=== PATIENT | female | born 1990 | race Caucasian/White ===

== ENCOUNTER 2019-02-22 02:02 | Inpatient (IN) | payer OTHER ==
[2019-02-22] MEDS ORDERED: Misoprostol 200 MCG Tab PO PRN (02:21)
[2019-02-22] MEDS ORDERED: Sodium Chloride 0.9% 2.5 ML Syringe FLUSH PRN (02:21)
[2019-02-22] MEDS ORDERED: Lidocaine 1% 50 ML MDV INJECT PRN (02:21)
[2019-02-22] MEDS ORDERED: Sodium Chloride 0.9% 10 ML Syringe FLUSH PRN (02:21)
[2019-02-22] MEDS ORDERED: Nalbuphine 10 MG/1 ML Vial IVPUSH PRN (02:21)
[2019-02-22] MEDS ORDERED: Tranexamic Acid 1,000 MG in Sodium Chloride 0.9% 100 ML IV PRN (02:21)
[2019-02-22] MEDS ORDERED: Sodium Chloride 0.9% 10 ML SDV IV PRN (02:21)
[2019-02-22] MEDS ORDERED: Water For Irrigation,Sterile 1,000 ML Container IRR PRN (02:21)
[2019-02-22] MEDS ORDERED: Ampicillin 2 GM in Sodium Chloride 0.9% 100 ML IV ONE (02:21)
[2019-02-22] MEDS ORDERED: Butorphanol 1 MG/ML SDV IVPUSH PRN (02:21)
[2019-02-22] MEDS ORDERED: Methylergonovine 0.2 MG/1 ML Amp IM PRN (02:21)
[2019-02-22] MEDS ORDERED: Carboprost Tromethamine 250 MCG/1 ML Amp IM PRN (02:21)
[2019-02-22] MEDS ORDERED: Lactated Ringers 1,000 ML IV SCH (02:30)
[2019-02-22] MEDS ORDERED: Oxytocin/0.9 % Sodium Chloride 30 UNIT/500 ML BAG IV SCH (02:30)
[2019-02-22] MEDS ORDERED: Ampicillin 2 GM AdvVial IV ONE (02:33)
--- NOTE | 2019-02-22 03:02 | PCM.LDHP ---
L&D History of Present Illness - General Date of Service: 02/22/19 Admit Problem/Dx: Patient Status Order with Admit Dx/Problem 02/22/19 02:21 Patient Status [ADT] Routine Admission Diagnosis/Problem Admission Diagnosis/Problem Source of Information: Patient History Limitations: Reports: No Limitations - History of Present Illness Improves with: Reports: None Worsens with: Reports: None Associated Symptoms: Reports: N - Related Data Allergies/Adverse Reactions: Allergies Allergy/AdvReac Type Severity Reaction Status Date / Time strawberry Allergy Hives Verified 02/22/19 02:21 H&P Review of Systems - Review of Systems: Review Of Systems: See Below General: Reports: No Symptoms HEENT: Reports: No Symptoms Pulmonary: Reports: No Symptoms Cardiovascular: Reports: No Symptoms Gastrointestinal: Reports: No Symptoms Genitourinary: Reports: No Symptoms Musculoskeletal: Reports: No Symptoms Skin: Reports: No Symptoms Psychiatric: Reports: No Symptoms Neurological: Reports: No Symptoms Hematologic/Lymphatic: Reports: No Symptoms Immunologic: Reports: No Symptoms L&D Exam - Exam Exam: See Below - Vital Signs Weight: 99.79 kg - OB Specific Fundal Height In cm: 37 Contraction Intensity: Moderate to Strong Movement: Active Heart Tones: Present Presentation: Vertex - Taveras Score Taveras Score Cervix Position: Anterior Taveras Score Consistency: Soft Taveras Score Effacement: >80% Taveras Score Dilation: > 5 cm Taveras Score 's Station: +1, +2 Taveras Score Total: 13 - Exam General: Alert, Oriented HEENT: PERRLA, Conjunctiva Clear, EACs Clear, EOMI, Hearing Intact, Mucosa Moist & Crooks, Nares Patent, Normal Nasal Septum, Posterior Pharynx Clear, TMs Clear Neck: Supple, Trachea Midline Lungs: Clear to Auscultation, Normal Respiratory Effort Cardiovascular: Regular Rate, Regular Rhythm GI/Abdominal Exam: Normal Bowel Sounds, Soft, Non-Tender, No Organomegaly, No Distention, No Abnormal Bruit, No Mass, Pelvis Stable Rectal Exam: Normal Exam, Normal Rectal Tone Genitourinary: Normal external exam, Normal bimanual exam, Normal speculum exam Back Exam: Normal Inspection, Full Range of Motion Extremities: Normal Inspection, Normal Range of Motion, Non-Tender, No Pedal Edema, Normal Capillary Refill Skin: Warm, Dry, Intact Neurological: Cranial Nerves Intact, Reflexes Equal Bilateral Psychiatric: Alert, Normal Affect, Normal Mood Problem List Initiated/Reviewed/Updated: Yes Orders Last 24hrs: Active Orders 24 hr Category Date Time Status Patient Status [ADT] Routine ADT 02/22/19 02:21 Active Heart Tones [RC] CONTINUOUS Care 02/22/19 02:21 Active Non Stress Test [RC] PER UNIT ROUTINE Care 02/22/19 02:21 Active May Shower [RC] ASDIRECTED Care 02/22/19 02:21 Active Notify Provider [RC] PRN Care 02/22/19 02:21 Active Up ad Lilian [RC] ASDIRECTED Care 02/22/19 02:21 Active Vaginal Exam [RC] PRN Care 02/22/19 02:21 Active Vital Signs [RC] PER UNIT ROUTINE Care 02/22/19 02:21 Active CBC W/O DIFF,HEMOGRAM [HEME] Routine Lab 02/22/19 02:21 Ordered TYPE AND SCREEN [BBK] Routine Lab 02/22/19 02:21 Ordered Butorphanol [Stadol] Med 02/22/19 02:21 Active 1 mg IVPUSH Q1H PRN Carboprost Tromethamine [Hemabate DS] Med 02/22/19 02:21 Active 250 mcg IM ASDIRECTED PRN Lactated Ringers [Ringers, Lactated] 1,000 ml Med 02/22/19 02:30 Active IV ASDIRECTED Lidocaine 1% [Xylocaine 1%] Med 02/22/19 02:21 Active 50 ml INJECT ONETIME PRN Methylergonovine [Methergine] Med 02/22/19 02:21 Active 0.2 mg IM ASDIRECTED PRN Nalbuphine [Nubain] Med 02/22/19 02:21 Active 10 mg IVPUSH Q1H PRN Oxytocin/0.9 % Sodium Chloride [Oxytocin 30 Unit/500 ML Med 02/22/19 02:30 Active -NS] 30 unit in 500 ml IV TITRATE Sodium Chloride 0.9% [Normal Saline] Med 02/22/19 02:21 Active 10 ml IV ASDIRECTED PRN Sodium Chloride 0.9% [Saline Flush] Med 02/22/19 02:21 Active 10 ml FLUSH ASDIRECTED PRN Sodium Chloride 0.9% [Saline Flush] Med 02/22/19 02:21 Active 2.5 ml FLUSH ASDIRECTED PRN Tranexamic Acid [Cyklokapron] 1,000 mg Med 02/22/19 02:21 Active Sodium Chloride 0.9% [Normal Saline] 100 ml IV ONETIME Water For Irrigation,Sterile [Sterile Water for Med 02/22/19 02:21 Active Irrigation] 1,000 ml IRR ASDIRECTED PRN miSOPROStol [Cytotec] Med 02/22/19 02:21 Active 200 mcg PO ONETIME PRN Scalp Electrode [WOMSER] Per Unit Routine Oth 02/22/19 02:21 Ordered Peripheral IV Insertion Adult [OM.PC] Routine Oth 02/22/19 02:21 Ordered Resuscitation Status Routine Resus Stat 02/22/19 02:21 Ordered Medication Orders Butorphanol Tartrate (Stadol) 1 mg IVPUSH Q1H PRN PRN Reason: Pain Carboprost Tromethamine (Hemabate Ds) 250 mcg IM ASDIRECTED PRN PRN Reason: Post Hemorrhage Lactated Ringer's (Ringers, Lactated) 1,000 mls @ 150 mls/hr IV ASDIRECTED [facility] Oxytocin/Sodium Chloride (Oxytocin 30 Unit/500 Ml-Ns) 30 unit in 500 mls @ 500 mls/hr IV TITRATE [facility] Tranexamic Acid 1,000 mg/ (Sodium Chloride) 110 mls @ 660 mls/hr IV ONETIME PRN PRN Reason: Bleeding Lidocaine HCl (Xylocaine 1%) 50 ml INJECT ONETIME PRN PRN Reason: Laceration repair Methylergonovine Maleate (Methergine) 0.2 mg IM ASDIRECTED PRN PRN Reason: Post Hemorrhage Misoprostol (Cytotec) 200 mcg PO ONETIME PRN PRN Reason: Post Hemorrhage Nalbuphine HCl (Nubain) 10 mg IVPUSH Q1H PRN PRN Reason: Pain (severe 7-10) Sodium Chloride (Saline Flush) 10 ml FLUSH ASDIRECTED PRN PRN Reason: Keep Vein Open Sodium Chloride (Saline Flush) 2.5 ml FLUSH ASDIRECTED PRN PRN Reason: Keep Vein Open Sodium Chloride (Normal Saline) 10 ml IV ASDIRECTED PRN PRN Reason: IV Use Sterile Water (Sterile Water For Irrigation) 1,000 ml IRR ASDIRECTED PRN PRN Reason: delivery
[2019-02-22] MEDS ORDERED: Bisacodyl 10 MG Supp RECTAL PRN (03:03)
[2019-02-22] MEDS ORDERED: Lanolin 100% Cream 7 GM Tube TOP PRN (03:03)
[2019-02-22] MEDS ORDERED: Benzocaine/Menthol 20%-0.5% Spray 78 GM Cannister TOP PRN (03:03)
[2019-02-22] MEDS ORDERED: Ibuprofen 400 MG Tab PO PRN (03:03)
[2019-02-22] MEDS ORDERED: Acetaminophen 500 MG Tab PO PRN ×2 (03:03)
[2019-02-22] MEDS ORDERED: Witch Hazel Medicated Pads 40/Jar TOP PRN (03:03)
[2019-02-22] MEDS ORDERED: Ibuprofen 800 MG Tab PO PRN (03:03)
[2019-02-22] MEDS ORDERED: oxyCODONE 5 MG Tab PO PRN (03:03)
--- NOTE | 2019-02-22 05:23 | OR ---
SURGEON: Dante Leo MD DATE OF PROCEDURE: Ms. Pauline Johnson is a 28-year-old patient, primigravida. She is followed in our clinic primarily by me. The patient had no complication. Her diabetes screen was essentially normal; however, the patient did have positive GBS status. She is 40+ weeks. She is admitted to Labor and Delivery early this morning in an active labor. At the time of the admission, she was complete complete vertex, 0 to +1 station with spontaneous rupture of the membrane, and the heart rate was essentially normal. The patient was commenced to push and she was able to accomplish normal spontaneous vaginal delivery of a male fetus, who cried immediately. score reported to be 8 and 9. The weight is not available. The patient had not received antibiotic prenatally because she arrived to the hospital complete complete with rupture of spontaneous membrane and proceeded to rather fast delivery. We will notify the pediatric staff of this condition, so they can observe the fetus if it needs antibiotic. There was very small first-degree laceration. There is no labial laceration. The patient has declined suturing of this small laceration, and I agreed with her that it would heal by itself. Estimated blood loss is 250 to 300 mL. heart rate was category 1, and there was no complication in the short labor process and delivery. ELIZABETH / ALEKSANDR /[id number]
[2019-02-23] MEDS: Docusate Sodium 100 MG Cap PO PRN (07:51)
--- NOTE | 2019-02-23 09:55 | PCM.PNPP ---
- General Info Date of Service: 02/23/19 Functional Status: Reports: Pain Controlled - Review of Systems General: Reports: No Symptoms HEENT: Reports: No Symptoms Pulmonary: Reports: No Symptoms Cardiovascular: Reports: No Symptoms Gastrointestinal: Reports: No Symptoms Genitourinary: Reports: No Symptoms Musculoskeletal: Reports: No Symptoms Skin: Reports: No Symptoms Neurological: Reports: No Symptoms Psychiatric: Reports: No Symptoms - General Info Date of Service: 02/23/19 - Patient Data Vital Signs - Most Recent: Last Vital Signs Temp 36.3 C 02/23/19 07:00 Pulse 81 02/23/19 07:00 Resp 16 02/23/19 07:00 BP 120/89 02/23/19 07:00 Pulse Ox 94 L 02/23/19 07:00 Weight - Most Recent: 99.79 kg Lab Results - Last 24 Hours: Laboratory Results - last 24 hr 02/23/19 Range/Units 06:14 Hgb 13.1 (12.0-16.0) g/dL Hct 39.7 (36.0-46.0) % Med Orders - Current: Current Medications Acetaminophen (Tylenol Extra Strength) 500 mg PO Q4H PRN PRN Reason: Pain Acetaminophen (Tylenol Extra Strength) 1,000 mg PO Q4H PRN PRN Reason: Pain Benzocaine/Menthol (Dermoplast Pain Relief 20%-0.5% [place]) 78 gm TOP ASDIRECTED PRN PRN Reason: Perineal Comfort Measure Bisacodyl (Dulcolax) 10 mg RECTAL ONETIME PRN PRN Reason: Constipation Butorphanol Tartrate (Stadol) 1 mg IVPUSH Q1H PRN PRN Reason: Pain Carboprost Tromethamine (Hemabate Ds) 250 mcg IM ASDIRECTED PRN PRN Reason: Post Hemorrhage Docusate Sodium (Colace) 100 mg PO BID PRN PRN Reason: Constipation Last Admin: 02/23/19 07:51 Dose: 100 mg Emollient Ointment (Lansinoh Hpa) 0 gm TOP ASDIRECTED PRN PRN Reason: Sore Nipples Lactated Ringer's (Ringers, Lactated) 1,000 mls @ 150 mls/hr IV ASDIRECTED [facility] Oxytocin/Sodium Chloride (Oxytocin 30 Unit/500 Ml-Ns) 30 unit in 500 mls @ 500 mls/hr IV TITRATE [facility] Tranexamic Acid 1,000 mg/ (Sodium Chloride) 110 mls @ 660 mls/hr IV ONETIME PRN PRN Reason: Bleeding Ibuprofen (Motrin) 400 mg PO Q4H PRN PRN Reason: Pain Ibuprofen (Motrin) 800 mg PO Q6H PRN PRN Reason: Pain Last Admin: 02/23/19 07:51 Dose: 800 mg Lidocaine HCl (Xylocaine 1%) 50 ml INJECT ONETIME PRN PRN Reason: Laceration repair Methylergonovine Maleate (Methergine) 0.2 mg IM ASDIRECTED PRN PRN Reason: Post Hemorrhage Misoprostol (Cytotec) 200 mcg PO ONETIME PRN PRN Reason: Post Hemorrhage Nalbuphine HCl (Nubain) 10 mg IVPUSH Q1H PRN PRN Reason: Pain (severe 7-10) Oxycodone HCl (Oxycodone) 5 mg PO Q2H PRN PRN Reason: Pain Sodium Chloride (Saline Flush) 10 ml FLUSH ASDIRECTED PRN PRN Reason: Keep Vein Open Sodium Chloride (Saline Flush) 2.5 ml FLUSH ASDIRECTED PRN PRN Reason: Keep Vein Open Sodium Chloride (Normal Saline) 10 ml IV ASDIRECTED PRN PRN Reason: IV Use Sterile Water (Sterile Water For Irrigation) 1,000 ml IRR ASDIRECTED PRN PRN Reason: delivery Witch Marcie (Tucks) 1 pad TOP ASDIRECTED PRN PRN Reason: comfort care Discontinued Medications Ampicillin Sodium (Ampicillin) Confirm Administered Dose 2 gm IV .STK-MED ONE Stop: 02/22/19 02:34 Ampicillin Sodium 2 gm/ Sodium (Chloride) 100 mls @ 200 mls/hr IV ONETIME ONE Stop: 02/22/19 02:50 - Interaction Disposition, : [place] in Room with Family Infant Interaction: Holding Infant Feeding: Attempted ; Nursed Fair/Poor Support Person: - Recovery Exam Fundal Tone: Firm Fundal Level: 1 Fingerbreadths Below Umbilicus Fundal Placement: Midline Lochia Amount: Scant Lochia Color: Rubra/Red Perineum Description: Other (see below) Other Perinuem Description: 1st deg tear Episiotomy/Laceration: Not Approximated Bladder Status: Nonpalpable, Voiding Urinary Elimination: Voided - Exam General: Alert, Oriented HEENT: Pupils Equal Neck: Supple Lungs: Clear to Auscultation, Normal Respiratory Effort Cardiovascular: Regular Rate, Regular Rhythm GI/Abdominal Exam: Normal Bowel Sounds, Soft, Non-Tender, No Organomegaly, No Distention, No Abnormal Bruit, No Mass, Pelvis Stable Extremities: Normal Inspection, Normal Range of Motion, Non-Tender, No Pedal Edema, Normal Capillary Refill Skin: Warm, Dry, Intact Wound/Incisions: Healing Well Neurological: No New Focal Deficit Psy/Mental Status: Alert, Normal Affect, Normal Mood - Problem List Review Problem List Initiated/Reviewed/Updated: Yes - Assessment Assessment:: S/P doing well. - Plan Plan:: Dischaege in am.
--- NOTE | 2019-02-24 08:22 | PCM.DCSUM1 ---
Discharge Summary - Hospital Course Diagnosis: Stroke: No - Discharge Data Discharge Date: 02/24/19 Discharge Disposition: Home, Self-Care 01 Condition: Good - Patient Instructions Diet: Usual Diet as Tolerated Activity: As Tolerated Driving: Do Not Drive Showering/Bathing: May Shower Notify Provider of: Fever, Increased Pain, Nausea and/or Vomiting - Discharge Plan - Discharge Summary/Plan Comment DC Time >30 min.: Yes - General Info Date of Service: 02/24/19 Functional Status: Reports: Pain Controlled - Review of Systems General: Reports: No Symptoms HEENT: Reports: No Symptoms Pulmonary: Reports: No Symptoms Cardiovascular: Reports: No Symptoms Gastrointestinal: Reports: No Symptoms Genitourinary: Reports: No Symptoms Musculoskeletal: Reports: No Symptoms Skin: Reports: No Symptoms Neurological: Reports: No Symptoms Psychiatric: Reports: No Symptoms - Patient Data Vitals - Most Recent: Last Vital Signs Temp 36.6 C 02/24/19 07:05 Pulse 88 02/24/19 07:05 Resp 16 02/24/19 07:05 BP 121/75 02/24/19 07:05 Pulse Ox 97 02/24/19 07:05 Weight - Most Recent: 99.79 kg Med Orders - Current: Current Medications Acetaminophen (Tylenol Extra Strength) 500 mg PO Q4H PRN PRN Reason: Pain Acetaminophen (Tylenol Extra Strength) 1,000 mg PO Q4H PRN PRN Reason: Pain Benzocaine/Menthol (Dermoplast Pain Relief 20%-0.5% [place]) 78 gm TOP ASDIRECTED PRN PRN Reason: Perineal Comfort Measure Bisacodyl (Dulcolax) 10 mg RECTAL ONETIME PRN PRN Reason: Constipation Butorphanol Tartrate (Stadol) 1 mg IVPUSH Q1H PRN PRN Reason: Pain Carboprost Tromethamine (Hemabate Ds) 250 mcg IM ASDIRECTED PRN PRN Reason: Post Hemorrhage Docusate Sodium (Colace) 100 mg PO BID PRN PRN Reason: Constipation Last Admin: 02/23/19 07:51 Dose: 100 mg Emollient Ointment (Lansinoh Hpa) 0 gm TOP ASDIRECTED PRN PRN Reason: Sore Nipples Last Admin: 02/24/19 07:43 Dose: 1 tube Lactated Ringer's (Ringers, Lactated) 1,000 mls @ 150 mls/hr IV ASDIRECTED [facility] Oxytocin/Sodium Chloride (Oxytocin 30 Unit/500 Ml-Ns) 30 unit in 500 mls @ 500 mls/hr IV TITRATE [facility] Tranexamic Acid 1,000 mg/ (Sodium Chloride) 110 mls @ 660 mls/hr IV ONETIME PRN PRN Reason: Bleeding Ibuprofen (Motrin) 400 mg PO Q4H PRN PRN Reason: Pain Ibuprofen (Motrin) 800 mg PO Q6H PRN PRN Reason: Pain Last Admin: 02/23/19 07:51 Dose: 800 mg Lidocaine HCl (Xylocaine 1%) 50 ml INJECT ONETIME PRN PRN Reason: Laceration repair Methylergonovine Maleate (Methergine) 0.2 mg IM ASDIRECTED PRN PRN Reason: Post Hemorrhage Misoprostol (Cytotec) 200 mcg PO ONETIME PRN PRN Reason: Post Hemorrhage Nalbuphine HCl (Nubain) 10 mg IVPUSH Q1H PRN PRN Reason: Pain (severe 7-10) Oxycodone HCl (Oxycodone) 5 mg PO Q2H PRN PRN Reason: Pain Sodium Chloride (Saline Flush) 10 ml FLUSH ASDIRECTED PRN PRN Reason: Keep Vein Open Sodium Chloride (Saline Flush) 2.5 ml FLUSH ASDIRECTED PRN PRN Reason: Keep Vein Open Sodium Chloride (Normal Saline) 10 ml IV ASDIRECTED PRN PRN Reason: IV Use Sterile Water (Sterile Water For Irrigation) 1,000 ml IRR ASDIRECTED PRN PRN Reason: delivery Witch Marcie (Tucks) 1 pad TOP ASDIRECTED PRN PRN Reason: comfort care Discontinued Medications Ampicillin Sodium (Ampicillin) Confirm Administered Dose 2 gm IV .STK-MED ONE Stop: 02/22/19 02:34 Last Admin: 02/23/19 20:10 Dose: Not Given Ampicillin Sodium 2 gm/ Sodium (Chloride) 100 mls @ 200 mls/hr IV ONETIME ONE Stop: 02/22/19 02:50 Last Admin: 02/23/19 20:09 Dose: Not Given - Exam General: Reports: Alert, Oriented HEENT: Reports: Pupils Equal, Pupils Reactive, EOMI, Mucous Membr. Moist/[place] Neck: Reports: Supple Lungs: Reports: Clear to Auscultation, Normal Respiratory Effort Cardiovascular: Reports: Regular Rate, Regular Rhythm GI/Abdominal Exam: Normal Bowel Sounds, Soft, Non-Tender, No Organomegaly, No Distention, No Abnormal Bruit, No Mass, Pelvis Stable (Female) Exam: Normal External Exam, Normal Speculum Exam, Normal Bimanual Exam Rectal (Female) Exam: Normal Exam, Normal Rectal Tone Back Exam: Reports: Normal Inspection, Full Range of Motion Extremities: Normal Inspection, Normal Range of Motion, Non-Tender, No Pedal Edema, Normal Capillary Refill Skin: Reports: Warm, Dry, Intact Wound/Incisions: Reports: Healing Well Neurological: Reports: No New Focal Deficit Psy/Mental Status: Reports: Alert, Normal Affect, Normal Mood
[2019-02-24] MEDS: Docusate Sodium 100 MG Cap PO PRN (10:26)
== END 2019-02-24 10:25 | disposition home or self-care (01) | DRG 807 ==
LOC: MW.OBCHECK 02:02 → MW.OB 02:05 → MW.OBCHECK 02:21 → MW.OB 02:21 → OBSVTOIN 02:45 → INTOOBSV 03:02 → OBSVTOIN 03:02 → MW.OB 06:40 → UNDODISIN 02-24 10:25
PROVIDERS: ADMIT Obstetrics & Gynecology; ATTEND Obstetrics & Gynecology
PROC: 10E0XZZ Delivery of Products of Conception, External Approach (ICD-10-PCS; principal; 2019-02-22)
DX: O48.0 Post-term pregnancy (principal); Z37.0 Single live birth; Z3A.40 40 weeks gestation of pregnancy; O99.824 Streptococcus B carrier state complicating childbirth; O70.0 First degree perineal laceration during delivery; Z91.018 Allergy to other foods
CPT/HCPCS: 36415; 59025; 59409; 85014; 85018; 85027; 86850; 86900; 86901; A9270-GY

== ENCOUNTER 2020-06-25 03:18 | Emergency (ER) | payer OTHER ==
[2020-06-25] MEDS ORDERED: Sodium Chloride 0.9% 10 ML Syringe FLUSH PRN (03:20)
[2020-06-25] MEDS ORDERED: Sodium Chloride 0.9% 2.5 ML Syringe FLUSH PRN (03:20)
[2020-06-25 04:12] LABS: BLOOD UREA NITROGEN,BUN 5 mg/dL (7.0-18.0); CARBON DIOXIDE,CO2 23.3 mmol/L (21.0-32.0); CHLORIDE,CL 102 mmol/L (98-107); GLUCOSE RANDOM 96 mg/dL (74-106); POTASSIUM,K 3.2 mmol/L (3.5-5.1); SODIUM,NA 137 mmol/L (136-145)
--- NOTE | 2020-06-25 04:39 | EDM.PDOC ---
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 Patient states that around 230 this morning she woke up experiencing vaginal bleeding. No prior episodes of vaginal bleeding with this . No history of coagulopathy. Denies any back or abdominal pain. Denies any other bleeding source such as hemoptysis, epistaxis, or rectal bleeding. No known issues with this and she is already had an OB intake appointment and an obstetrical ultrasound that she states was normal. ROS: A 10-point review of systems was negative, except as noted in the HPI (or in the ROS section of this note). Past medical history: Reviewed, no additional pertinent history. Surgical history: Reviewed in system, no additional pertinent history. Social history: Reviewed in system, no additional pertinent history. Family history: Reviewed in system, no additional pertinent history. PHYSICAL EXAM Vital signs reviewed. Nursing notes reviewed. Constitutional: Awake, alert, non-distressed. Head: Normocephalic, atraumatic. Eyes: EOMI, conjunctiva normal, no discharge, no scleral icterus. Ears, Nose, Throat: External ears and nose normal, moist oral mucosa. Cardiovascular: 2+ radial pulse, capillary refill less than 2 seconds. Pulmonary: normal work of breathing, no accessory muscle use. Abdomen/GI: Soft, nontender, nondistended, no guarding or rigidity, no masses. (Female) Exam: Normal External Exam, Scant dried Vaginal Bleeding. No: Cervical Dilatation, Cervical Discharge, Tissue Present in Cervix/Vagina, Vaginal Discharge, Vaginal Lesions, Vaginal Tears Musculoskeletal: No deformities. Integumentary: Appropriate color for ethnicity, warm, dry, no pallor or j aundice, no rash. Neurologic: Alert, answering questions appropriately, normal speech, no facial droop, moving all extremities well. Psychiatric: Appropriate mood and affect, normal thought process. 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 No: Cervical Dilatation, Cervical Discharge, Tissue Present in Cervix/Vagina, Vaginal Discharge, Vaginal Lesions, Vaginal Tears Course - Vital Signs Text/Narrative:: Patient mildly tachycardic but hemodynamically stable, afebrile, well-appearing, looks nontoxic. Differential diagnosis includes but is not limited to: ectopic , spontaneous , endometrial or cervical malignancy, placenta previa, placental abruption, normal menses, coagulopathy, hypothyroidism, vaginal/cervical trauma, STI, foreign body, and many others. Blood work is reassuring. Normal INR. Metabolic panel shows very mild hypokalemia. Urinalysis with moderate blood. Rh+. I reviewed the radiology ultrasound study, which appears to show an IUP with normal cardiac activity in expected position. There does appear to be some debris in the cervical canal. We are awaiting radiologist read at time of shift change. Please refer to my colleague Dr. Espinosa's note for the disposition. Anticipate discharge home with OB follow-up in 2 to 3 days as a matter of routine if ultrasound study is reassuring (Shalom Barclay) Last Recorded V/S: Last Vital Signs Temp 97.7 F 06/25/20 03:27 Pulse 102 H 06/25/20 06:49 Resp 16 06/25/20 06:49 BP 115/67 06/25/20 06:49 Pulse Ox 96 06/25/20 06:49 - Orders/Labs/Meds Orders: Active Orders 24 hr Category Date Time Status Pelvic Exam, Set Up [RC] ASDIRECTED Care 06/25/20 03:34 Active Pulse Oximetry [RC] ASDIRECTED Care 06/25/20 03:20 Active Nothing Per Oral Diet [DIET] Diet 06/25/20 Dinner Active OB Transvaginal [US] Routine Exams 06/25/20 05:00 Taken Sodium Chloride 0.9% [Saline Flush] Med 06/25/20 03:20 Active 10 ml FLUSH ASDIRECTED PRN Sodium Chloride 0.9% [Saline Flush] Med 06/25/20 03:20 Active 2.5 ml FLUSH ASDIRECTED PRN Saline Lock Insert [OM.PC] Stat Oth 06/25/20 03:20 Ordered Medication Orders Sodium Chloride (Saline Flush) 10 ml FLUSH ASDIRECTED PRN PRN Reason: Keep Vein Open Sodium Chloride (Saline Flush) 2.5 ml FLUSH ASDIRECTED PRN PRN Reason: Keep Vein Open Labs: Laboratory Tests 06/25/20 06/25/20 06/25/20 Range/Units 03:42 03:42 03:42 WBC 9.69 (4.0-11.0) K/uL RBC 4.47 (4.30-5.90) M/uL Hgb 13.3 (12.0-16.0) g/dL Hct 39.4 (36.0-46.0) % MCV 88.1 (80.0-98.0) fL MCH 29.8 (27.0-32.0) pg MCHC 33.8 (31.0-37.0) g/dL RDW Std Deviation 44.6 (28.0-62.0) fl RDW Coeff of Bernarda 14 (11.0-15.0) % Plt Count 245 (150-400) K/uL MPV 9.90 (7.40-12.00) fL Neut % (Auto) 69.9 (48.0-80.0) % Lymph % (Auto) 23.4 (16.0-40.0) % Woodruff % (Auto) 5.5 (0.0-15.0) % Eos % (Auto) 1.0 (0.0-7.0) % Baso % (Auto) 0.2 (0.0-1.5) % Neut # (Auto) 6.8 H (1.4-5.7) K/uL Lymph # (Auto) 2.3 (0.6-2.4) K/uL Woodruff # (Auto) 0.5 (0.0-0.8) K/uL Eos # (Auto) 0.1 (0.0-0.7) K/uL Baso # (Auto) 0.0 (0.0-0.1) K/uL Nucleated RBC % 0.0 /100WBC Nucleated RBCs # 0 K/uL INR 0.91 Sodium 137 (136-145) mmol/L Potassium 3.2 L (3.5-5.1) mmol/L Chloride 102 (98-107) mmol/L Carbon Dioxide 23.3 (21.0-32.0) mmol/L BUN 5 L (7.0-18.0) mg/dL Creatinine 0.6 (0.6-1.0) mg/dL Est Cr Clr Drug Dosing 136.96 mL/min Estimated GFR (MDRD) > 60.0 ml/min Glucose 96 (74-106) mg/dL Calcium 9.4 (8.5-10.1) mg/dL HCG, Quant mIU/mL Urine Color Urine Appearance Urine pH (5.0-8.0) Ur Specific Driggs (1.001-1.035) Urine Protein (NEGATIVE) mg/dL Urine Glucose (UA) (NEGATIVE) mg/dL Urine Ketones (NEGATIVE) mg/dL Urine Occult Blood (NEGATIVE) Urine Nitrite (NEGATIVE) Urine Bilirubin (NEGATIVE) Urine Urobilinogen (<2.0) EU/dL Ur Leukocyte Esterase (NEGATIVE) Urine RBC (0-2/HPF) Urine WBC (0-5/HPF) Ur Epithelial Cells (NONE-FEW) Urine Bacteria (NEGATIVE) Urine Mucus (NONE-MOD) Blood Type 06/25/20 06/25/20 06/25/20 Range/Units 03:42 03:42 04:20 WBC (4.0-11.0) K/uL RBC (4.30-5.90) M/uL Hgb (12.0-16.0) g/dL Hct (36.0-46.0) % MCV (80.0-98.0) fL MCH (27.0-32.0) pg MCHC (31.0-37.0) g/dL RDW Std Deviation (28.0-62.0) fl RDW Coeff of Bernarda (11.0-15.0) % Plt Count (150-400) K/uL MPV (7.40-12.00) fL Neut % (Auto) (48.0-80.0) % Lymph % (Auto) (16.0-40.0) % Woodruff % (Auto) (0.0-15.0) % Eos % (Auto) (0.0-7.0) % Baso % (Auto) (0.0-1.5) % Neut # (Auto) (1.4-5.7) K/uL Lymph # (Auto) (0.6-2.4) K/uL Woodruff # (Auto) (0.0-0.8) K/uL Eos # (Auto) (0.0-0.7) K/uL Baso # (Auto) (0.0-0.1) K/uL Nucleated RBC % /100WBC Nucleated RBCs # K/uL INR Sodium (136-145) mmol/L Potassium (3.5-5.1) mmol/L Chloride (98-107) mmol/L Carbon Dioxide (21.0-32.0) mmol/L BUN (7.0-18.0) mg/dL Creatinine (0.6-1.0) mg/dL Est Cr Clr Drug Dosing mL/min Estimated GFR (MDRD) ml/min Glucose (74-106) mg/dL Calcium (8.5-10.1) mg/dL HCG, Quant 71006.0 mIU/mL Urine Color YELLOW Urine Appearance CLEAR Urine pH 6.5 (5.0-8.0) Ur Specific Driggs 1.020 (1.001-1.035) Urine Protein NEGATIVE (NEGATIVE) mg/dL Urine Glucose (UA) NEGATIVE (NEGATIVE) mg/dL Urine Ketones NEGATIVE (NEGATIVE) mg/dL Urine Occult Blood MODERATE H (NEGATIVE) Urine Nitrite NEGATIVE (NEGATIVE) Urine Bilirubin NEGATIVE (NEGATIVE) Urine Urobilinogen 0.2 (<2.0) EU/dL Ur Leukocyte Esterase NEGATIVE (NEGATIVE) Urine RBC 1-3 (0-2/HPF) Urine WBC 0-2 (0-5/HPF) Ur Epithelial Cells FEW (NONE-FEW) Urine Bacteria 1+ H (NEGATIVE) Urine Mucus LIGHT (NONE-MOD) Blood Type A POSITIVE Meds: Medications Generic Name Dose Route Start Last Admin Trade Name Freq PRN Reason Stop Dose Admin Sodium Chloride 10 ml 06/25/20 03:20 Saline Flush FLUSH ASDIRECTED PRN Keep Vein Open Sodium Chloride 2.5 ml 06/25/20 03:20 Saline Flush FLUSH ASDIRECTED PRN Keep Vein Open - Re-Assessments/Exams Free Text/Narrative Re-Assessment/Exam: 06/25/20 07:28 I reassessed the patient. She is resting comfortably and in no acute distress other than somewhat anxious about the results of her ultrasound. I did discuss those results directly with the patient and need for outpatient ROTARY SURFACE GRINDER follow- up, pelvic rest, and strict return instructions. Discussed plan for potassium supplementation including potassium rich foods. (Bisi Hernandez) Departure - Departure Time of Disposition: 06:52 Condition: Good - Discharge Information *PRESCRIPTION DRUG MONITORING PROGRAM REVIEWED*: Not Applicable *COPY OF PRESCRIPTION DRUG MONITORING REPORT IN PATIENT TOMER: Not Applicable - Departure Disposition: Home, Self-Care 01 Clinical Impression: Threatened , Hypokalemia - Discharge Information Instructions: Threatened Miscarriage, Hypokalemia, Vaginal Bleeding During , First Trimester, Vaginal Bleeding During , Second Trimester, [id number], Potassium Content of Foods Referrals: Dante Leo MD [Physician] - 3 Days (For follow-up care.) Forms: ED Department Discharge Additional Instructions: Your blood type is A+. You were seen in the emergency department for vaginal bleeding and . Your laboratory work-up is reassuring. You are not anemic. Your blood work showed that you have a slightly low potassium level. Your ultrasound showed that you likely have a small amount of bleeding in the cervix but the cervix looks closed. On the ultrasound there is also a small subchorionic hemorrhage. We term this a threatened or threatened miscarriage. I would like for you to follow-up with your R[employer] SURFACE GRINDER clinic in the next 2 to 3 days for reevaluation. If the amount of bleeding increases or you start developing abdominal or back pain or if you have any other new or concerning symptoms, come back to the ER right away. Please return the emergency department immediately if your symptoms worsen or if you feel worse. Thank you for choosing the [facility] emergency department in [place] for your medical needs today. It was a pleasure caring for you. The following information is given to patients seen in the emergency department who are being discharged. This information is to outline your options for follow-up care. We provide all patients seen in our emergency department with a follow-up referral. The need for follow-up, as well as the timing and circumstances, are variable depending upon the specifics of your emergency department visit. If you don't have a primary care physician on staff, we will provide you with a referral. We always advise you to contact your personal physician following an emergency department visit to inform them of the circumstance of the visit and for follow-up with them and/or the need for any referrals to a consulting specialist. The emergency department will also refer you to a specialist when appropriate. This referral assures that you have the opportunity for follow-up care with a sp ecialist. All of these measure are taken in an effort to provide you with optimal care, which includes your follow-up. Under all circumstances we always encourage you to contact your private physicia n who remains a resource for coordinating your care. When calling for follow-up care, please make the office aware that this follow-up is from your recent emergency room visit. If for any reason you are refused follow-up, please contact the [facility] Emergency Department at and asked to speak to the emergency department charge nurse. If you do not have a primary care physician that is caring for you, you can contact these clinics below to set up an appointment to establish care: [facility] - Primary Care [address] [place] [address] [id number] [address] [place] [address] Sepsis Event Note (ED) - Evaluation Sepsis Screening Result: No Definite Risk - Focused Exam Vital Signs: Vital Signs Temp Pulse Resp BP Pulse Ox 06/25/20 06:49 102 H 16 115/67 96 06/25/20 06:20 105 H 16 109/59 L 95 06/25/20 04:26 100 20 114/64 96 06/25/20 03:27 97.7 F 110 H 14 119/78 98
--- NOTE | 2020-06-25 07:04 | US ---
INDICATION: Vaginal bleeding. LMP 03/22/2020. TECHNIQUE: Ultrasound OB pelvis transabdominal. Real-time benedict-scale imaging of the fetus was performed as well as color Doppler and spectral Doppler analysis of the umbilical artery. COMPARISON: None. FINDINGS: Sonographic imaging demonstrates a single living intrauterine gestation. Fetus demonstrates a regular cardiac rate of 160 beats per minute. The placenta lies posteriorly without evidence of placenta previa. Isoechoic fullness measuring up to 2.4 cm at the internal os raising question small subchorionic hemorrhage. Biometry: Biparietal diameter: 2.73 cm. Head circumference: 10.13 cm. Abdominal circumference: 8.33 cm. Femoral length: 1.32 cm. The composite ultrasound gestational age is calculated at 14 weeks 4 days with an estimated sonographic due date of 12/20/2020. The weight is estimated at 95 grams, the 85th percentile. IMPRESSION: 1.Single viable intrauterine . 2.Possible small subchorionic hemorrhage. Dictated by Luis Ortiz MD @ Jun 25 2020 6:52AM Signed by Dr. Luis Ortiz @ Jun 25 2020 7:03AM
--- NOTE | 2020-06-25 09:01 | US ---
EXAM DATE: 06/25/20 PATIENT'S AGE: 29 Patient: OUMOU GOLD Facility: [facility] Site . Site : [id number] Study: US-OB Pelvis -06/25/2020 6:09:15 AM Ordering Physician: Deny Rausch Final Report: INDICATION: Vaginal bleeding. LMP 03/22/2020. TECHNIQUE: Ultrasound OB pelvis transabdominal. Real-time benedict-scale imaging of the fetus was performed as well as color Doppler and spectral Doppler analysis of the umbilical artery. COMPARISON: None. FINDINGS: Sonographic imaging demonstrates a single living intrauterine gestation. Fetus demonstrates a regular cardiac rate of 160 beats per minute. The placenta lies posteriorly without evidence of placenta previa. Isoechoic fullness measuring up to 2.4 cm at the internal os raising question small subchorionic hemorrhage. Biometry: Biparietal diameter: 2.73 cm. Head circumference: 10.13 cm. Abdominal circumference: 8.33 cm. Femoral length: 1.32 cm. The composite ultrasound gestational age is calculated at 14 weeks 4 days with an estimated sonographic due date of 12/20/2020. The weight is estimated at 95 grams, the 85th percentile. IMPRESSION: 1.Single viable intrauterine . 2.Possible small subchorionic hemorrhage. Dictated by Luis Ortiz MD @ Jun 25 2020 6:52AM Signed by: Luis Ortiz MD @06/25/2020 7:03:18 AM (Electronic Signature) Report Signed by Proxy. CALLIE
== END 2020-06-25 07:45 | disposition home or self-care (01) ==
LOC: MW.ED 03:18
DX: O20.0 Threatened abortion (principal); O99.282 Endocrine, nutritional and metabolic diseases complicating pregnancy, second trimester; E87.6 Hypokalemia; Z91.018 Allergy to other foods; Z3A.14 14 weeks gestation of pregnancy
CPT/HCPCS: 36415; 76801; 76801-26; 76817; 76817-26; 80048; 81001; 84702; 85025; 85610; 86900; 86901; 99284; 99285-25

== ENCOUNTER 2020-11-16 14:50 | Inpatient (IN) | payer OTHER ==
[2020-11-16] MEDS ORDERED: Methylergonovine 0.2 MG/1 ML Amp IM PRN (16:52)
[2020-11-16] MEDS ORDERED: Sodium Chloride 0.9% 2.5 ML Syringe FLUSH PRN ×2 (16:52→19:56)
[2020-11-16] MEDS ORDERED: Sodium Chloride 0.9% 10 ML SDV IV PRN ×2 (16:52→19:56)
[2020-11-16] MEDS ORDERED: Sodium Chloride 0.9% 10 ML Syringe FLUSH PRN ×2 (16:52→19:56)
[2020-11-16] MEDS ORDERED: Tranexamic Acid 1,000 MG in Sodium Chloride 0.9% 100 ML IV PRN (16:52)
[2020-11-16] MEDS ORDERED: Carboprost Tromethamine 250 MCG/1 ML Amp IM PRN (16:52)
[2020-11-16] MEDS ORDERED: Misoprostol 200 MCG Tab PO PRN (16:52)
--- NOTE | 2020-11-16 16:59 | US ---
Indication: Bleeding with clinical concern for progression Technique: Sonography was performed limited the factors instructions discussed below Comparison: October 04, 2020 Findings: There is a single live intrauterine gestation. Position is cephalic. The NENA is normal at 15.7 centimeters. The placenta is posterior fundal maternal right. There is no previa and there is no ultrasound evidence of abruption. Cervical length was measured as 5 centimeters Impression: No evidence of abruption. Total NENA is 15.7 centimeters which is normal. Single live intrauterine that is currently cephalic. Dictated by Antoine Temple MD @ Nov 16 2020 4:54PM Signed by Dr. Antoine Temple @ Nov 16 2020 4:57PM
[2020-11-16] MEDS ORDERED: Betamethasone Acetate/Betamethasone Sod Phosphate 30 MG/5 ML MDV IM SCH (17:00)
[2020-11-16] MEDS ORDERED: Ampicillin 2 GM in Sodium Chloride 0.9% 100 ML IV SCH (17:00)
[2020-11-16] MEDS: Lactated Ringers 1,000 ML IV SCH ×2 (17:05→22:28)
[2020-11-16] MEDS ORDERED: Magnesium Sulfate/Water 4 GM in Premix Bag 1 BAG IV ONE (19:56)
[2020-11-16] MEDS ORDERED: Calcium Gluconate 10% 1 GM/10 ML SDV IV PRN (19:56)
[2020-11-16] MEDS ORDERED: Magnesium Sulfate/Water 20 GM/500 ML BAG IV SCH (20:00)
[2020-11-16] MEDS ORDERED: Ampicillin 1 GM in Sodium Chloride 0.9% 50 ML IV SCH (21:00)
[2020-11-16] MEDS ORDERED: Ampicillin 1 GM Vial ONE (21:02)
--- NOTE | 2020-11-16 21:35 | PCM.LDHP ---
L&D History of Present Illness - General Date of Service: 11/16/20 Admit Problem/Dx: Patient Status Order with Admit Dx/Problem 11/16/20 15:51 Patient Status [ADT] Routine 11/16/20 16:53 Patient Status [ADT] Routine Admission Diagnosis/Problem Admission Diagnosis/Problem Planned Source of Information: Patient History Limitations: Reports: No Limitations - History of Present Illness Improves with: Reports: None Worsens with: Reports: None Associated Symptoms: Reports: N - Related Data Allergies/Adverse Reactions: Allergies Allergy/AdvReac Type Severity Reaction Status Date / Time strawberry Allergy Hives Verified 11/16/20 15:30 Home Medications: Home Meds Pnv No.95/Ferrous Fum/Folic AC [ Multivitamin Tablet] 1 tab PO DAILY 06/25/20 [History] Fish Oil/[place]-3 Fatty Acids [Fish Oil 1,000 MG] 1 cap PO DAILY 11/16/20 [History] Pantoprazole Sodium [Protonix] 20 mg PO DAILY 11/16/20 [History] Past Medical History - Past Health History Medical/Surgical History: Denies Medical/Surgical History HEENT History: Reports: Impaired Vision Cardiovascular History: Reports: None Respiratory History: Reports: None Gastrointestinal History: Reports: None 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: Musculoskeletal History: Reports: None Endocrine/Metabolic History: Reports: None, Obesity/BMI 30+ Immunologic History: Reports: None - Infectious Disease History Infectious Disease History: Reports: Chicken Pox - Past Surgical History HEENT Surgical History: Reports: None Cardiovascular Surgical History: Reports: None Respiratory Surgical History: Reports: None Endocrine Surgical History: Reports: None Social & Family History - Family History Family Medical History: No Pertinent Family History Cardiac: Reports: ID GI: Reports: None Neurological: Reports: None Endocrine/Metabolic: Reports: None - Tobacco Use Tobacco Use Status *Q: Never Tobacco User Second Hand Smoke Exposure: No - Caffeine Use Caffeine Use: Reports: None - Recreational Drug Use Recreational Drug Use: No H&P Review of Systems - Review of Systems: Review Of Systems: See Below General: Reports: No Symptoms HEENT: Reports: No Symptoms Pulmonary: Reports: No Symptoms Cardiovascular: Reports: No Symptoms Gastrointestinal: Reports: No Symptoms Genitourinary: Reports: No Symptoms Musculoskeletal: Reports: No Symptoms Skin: Reports: No Symptoms Psychiatric: Reports: No Symptoms Neurological: Reports: No Symptoms Hematologic/Lymphatic: Reports: No Symptoms Immunologic: Reports: No Symptoms L&D Exam - Exam Exam: See Below - Vital Signs Weight: 95.9 kg - OB Specific Contraction Intensity: Irritability Movement: Active Heart Tones: Present - Taveras Score Taveras Score Cervix Position: Midposition Taveras Score Consistency: Medium Taveras Score Effacement: 31-50% Taveras Score Dilation: 1-2 cm Taveras Score Infant's Station: -2 Taveras Score Total: 5 - Exam General: Alert, Oriented HEENT: PERRLA, Conjunctiva Clear, EACs Clear, EOMI, Hearing Intact, Mucosa Moist & [place], Nares Patent, Normal Nasal Septum, Posterior Pharynx Clear, TMs Clear Neck: Supple, Trachea Midline Lungs: Clear to Auscultation, Normal Respiratory Effort Cardiovascular: Regular Rate, Regular Rhythm GI/Abdominal Exam: Normal Bowel Sounds, Soft, Non-Tender, No Organomegaly, No Distention, No Abnormal Bruit, No Mass, Pelvis Stable Rectal Exam: Normal Exam, Normal Rectal Tone Genitourinary: Normal external exam, Normal bimanual exam, Normal speculum exam Back Exam: Normal Inspection, Full Range of Motion Extremities: Normal Inspection, Normal Range of Motion, Non-Tender, No Pedal Edema, Normal Capillary Refill Skin: Warm, Dry, Intact Neurological: Cranial Nerves Intact, Reflexes Equal Bilateral Psychiatric: Alert, Normal Affect, Normal Mood - Patient Data Lab Results Last 24 hrs: Laboratory Results - last 24 hr 11/16/20 11/16/20 11/16/20 Range/Units 16:02 16:58 16:58 WBC 10.63 (4.0-11.0) K/uL RBC 4.42 (4.30-5.90) M/uL Hgb 12.9 (12.0-16.0) g/dL Hct 38.7 (36.0-46.0) % MCV 87.6 (80.0-98.0) fL MCH 29.2 (27.0-32.0) pg MCHC 33.3 (31.0-37.0) g/dL RDW Std Deviation 42.4 (28.0-62.0) fl RDW Coeff of Bernarda 13 (11.0-15.0) % Plt Count 219 (150-400) K/uL MPV 11.60 (7.40-12.00) fL Nucleated RBC % 0.0 /100WBC Nucleated RBCs # 0 K/uL Membrane Rupture POSITIVE SARS-CoV-2 RNA (SARINA) (NEGATIVE) Blood Type A POSITIVE Antibody Screen NEGATIVE 11/16/20 Range/Units 18:18 WBC (4.0-11.0) K/uL RBC (4.30-5.90) M/uL Hgb (12.0-16.0) g/dL Hct (36.0-46.0) % MCV (80.0-98.0) fL MCH (27.0-32.0) pg MCHC (31.0-37.0) g/dL RDW Std Deviation (28.0-62.0) fl RDW Coeff of Bernarda (11.0-15.0) % Plt Count (150-400) K/uL MPV (7.40-12.00) fL Nucleated RBC % /100WBC Nucleated RBCs # K/uL Membrane Rupture SARS-CoV-2 RNA (SARINA) NEGATIVE (NEGATIVE) Blood Type Antibody Screen Result Diagrams: 11/16/20 16:58 Problem List Initiated/Reviewed/Updated: Yes Orders Last 24hrs: Active Orders 24 hr Category Date Time Status Patient Status [ADT] Routine ADT 11/16/20 16:53 Active Bedrest Bathroom Privileges [RC] ASDIRECTED Care 11/16/20 16:52 Active Bedrest [RC] ASDIRECTED Care 11/16/20 19:56 Active Communication Order [RC] PRN Care 11/16/20 19:56 Active Communication Order [RC] PRN Care 11/16/20 19:56 Active Equipment to Bedside [RC] PRN Care 11/16/20 19:56 Active Heart Tones [RC] ASDIRECTED Care 11/16/20 16:51 Active Heart Tones [RC] CONTINUOUS Care 11/16/20 16:53 Active Non Stress Test [RC] PER UNIT ROUTINE Care 11/16/20 15:51 Active Height and Weight [RC] DAILY Care 11/16/20 19:56 Active Intake and Output [RC] QSHIFT Care 11/16/20 19:56 Active May Shower [RC] ASDIRECTED Care 11/16/20 16:53 Active Notify Provider Status Change [RC] ASDIRECTED Care 11/16/20 19:57 Active Notify Provider [RC] PRN Care 11/16/20 16:53 Active Notify Provider [RC] PRN Care 11/16/20 19:56 Active Oxygen Therapy [RC] PRN Care 11/16/20 19:56 Active Up ad Lilian [RC] ASDIRECTED Care 11/16/20 15:51 Active Vaginal Exam [RC] Click to Edit Care 11/16/20 15:51 Active Vital Signs [RC] PER UNIT ROUTINE Care 11/16/20 15:51 Active Vital Signs [RC] PER UNIT ROUTINE Care 11/16/20 16:53 Active Regular Diet [DIET] Diet 11/16/20 Dinner Active Abdomen Ltd [US] Routine Exams 11/17/20 07:00 Ordered MAGNESIUM [CHEM] Routine Lab 11/17/20 00:30 Ordered RPR (SYPHILIS SERO) W/ RFLX [REF] Routine Lab 11/16/20 16:58 Received Ampicillin 1 gm Med 11/16/20 21:00 Active Sodium Chloride 0.9% [Normal Saline] 50 ml IV Q4H Betamet Acet/Betamet Na Phos [Celestone Soluspan 6 MG/ Med 11/16/20 17:00 Active ML] 12 mg IM Q24H Calcium Gluconate Med 11/16/20 19:56 Active 1 gm IV ASDIRECTED PRN Carboprost Tromethamine [Hemabate DS] Med 11/16/20 16:52 Active 250 mcg IM ASDIRECTED PRN Lactated Ringers [Ringers, Lactated] 1,000 ml Med 11/16/20 17:00 Active IV ASDIRECTED Magnesium Sulfate/Water [Magnesium Sulfate in Water 20 Med 11/16/20 20:00 Active GM/500 ML] 20 gm in 500 ml IV ASDIRECTED Methylergonovine [Methergine] Med 11/16/20 16:52 Active 0.2 mg IM ASDIRECTED PRN Sodium Chloride 0.9% [Normal Saline] Med 11/16/20 16:52 Active 10 ml IV ASDIRECTED PRN Sodium Chloride 0.9% [Normal Saline] Med 11/16/20 19:56 Active 10 ml IV ASDIRECTED PRN Sodium Chloride 0.9% [Saline Flush] Med 11/16/20 16:52 Active 10 ml FLUSH ASDIRECTED PRN Sodium Chloride 0.9% [Saline Flush] Med 11/16/20 19:56 Active 10 ml FLUSH ASDIRECTED PRN Sodium Chloride 0.9% [Saline Flush] [facility] 11/16/20 16:52 Active 2.5 ml FLUSH ASDIRECTED PRN Sodium Chloride 0.9% [Saline Flush] [facility] 11/16/20 19:56 Active 2.5 ml FLUSH ASDIRECTED PRN Tranexamic Acid [Cyklokapron] 1,000 mg [facility] 11/16/20 16:52 Active Sodium Chloride 0.9% [Normal Saline] 100 ml IV ONETIME miSOPROStoL [Cytotec] [facility] 11/16/20 16:52 Active 200 mcg PO ONETIME PRN Deep Tendon Reflexes [WOMSER] [address] 11/16/20 20:00 Ordered Deep Tendon Reflexes [WOMSER] [address] 11/16/20 21:00 Ordered Deep Tendon Reflexes [WOMSER] [address] 11/16/20 22:00 Ordered Deep Tendon Reflexes [WOMSER] [address] 11/16/20 23:00 Ordered Deep Tendon Reflexes [WOMSER] [address] 11/17/20 00:00 Ordered Deep Tendon Reflexes [WOMSER] [address] 11/17/20 01:00 Ordered Deep Tendon Reflexes [WOMSER] [address] 11/17/20 02:00 Ordered Deep Tendon Reflexes [WOMSER] [address] 11/17/20 03:00 Ordered Deep Tendon Reflexes [WOMSER] [address] 11/17/20 04:00 Ordered Deep Tendon Reflexes [WOMSER] [address] 11/17/20 05:00 Ordered Deep Tendon Reflexes [WOMSER] [address] 11/17/20 06:00 Ordered Deep Tendon Reflexes [WOMSER] [address] 11/17/20 07:00 Ordered Deep Tendon Reflexes [WOMSER] [address] 11/17/20 08:00 Ordered Deep Tendon Reflexes [WOMSER] [address] 11/17/20 09:00 Ordered Deep Tendon Reflexes [WOMSER] [address] 11/17/20 10:00 Ordered Deep Tendon Reflexes [WOMSER] [address] 11/17/20 11:00 Ordered Deep Tendon Reflexes [WOMSER] [address] 11/17/20 12:00 Ordered Deep Tendon Reflexes [WOMSER] Q1 Ot 11/17/20 13:00 Ordered Deep Tendon Reflexes [WOMSER] Q1 Ot 11/17/20 14:00 Ordered Deep Tendon Reflexes [WOMSER] Q1 Ot 11/17/20 15:00 Ordered Deep Tendon Reflexes [WOMSER] Q1 Ot 11/17/20 16:00 Ordered Deep Tendon Reflexes [WOMSER] Q1 Ot 11/17/20 17:00 Ordered Deep Tendon Reflexes [WOMSER] Q1 Ot 11/17/20 18:00 Ordered Deep Tendon Reflexes [WOMSER] Q1 Ot 11/17/20 19:00 Ordered Electronic Heart Tones Ext w TOCO [WOMSER] Per Ot 11/16/20 16:49 Ordered Unit Routine Peripheral IV Insertion Adult [OM.PC] Routine Ot 11/16/20 16:53 Ordered Peripheral IV Insertion Adult [OM.PC] Routine Ot 11/16/20 19:56 Ordered Resuscitation Status Routine Resus Stat 11/16/20 15:51 Ordered Medication Orders Betamethasone Acet/Betameth SodPhos (C[place]estone Soluspan 6 Mg/Ml) 12 mg IM Q24H [facility] Stop: 11/17/20 17:01 Last Admin: 11/16/20 17:29 Dose: 12 mg Documented by: GAURAV Calcium Gluconate (Calcium Gluconate) 1 gm IV ASDIRECTED PRN PRN Reason: respiratory distress Carboprost Tromethamine (Hemabate Ds) 250 mcg IM ASDIRECTED PRN PRN Reason: Post Hemorrhage Lactated Ringer's (Ringers, Lactated) 1,000 mls @ 150 mls/hr IV ASDIRECTED [facility] Last Admin: 11/16/20 17:05 Dose: 150 mls/hr Documented by: GAURAV Tranexamic Acid 1,000 mg/ (Sodium Chloride) 110 mls @ 660 mls/hr IV ONETIME PRN PRN Reason: Bleeding Ampicillin Sodium 1 gm/ Sodium (Chloride) 50 mls @ 100 mls/hr IV Q4H [facility] Last Admin: 11/16/20 21:05 Dose: 100 mls/hr Documented by: ALAN Magnesium Sulfate (Magnesium Sulfate In Water 20 Gm/500 Ml) 20 gm in 500 mls @ 50 mls/hr IV ASDIRECTED MAMIE Last Admin: 11/16/20 20:35 Dose: 2 gm/hr, 50 mls/hr Documented by: ALAN Methylergonovine Maleate (Methergine) 0.2 mg IM ASDIRECTED PRN PRN Reason: Post Hemorrhage Misoprostol (Cytotec) 200 mcg PO ONETIME PRN PRN Reason: Post Hemorrhage Sodium Chloride (Saline Flush) 10 ml FLUSH ASDIRECTED PRN PRN Reason: Keep Vein Open Sodium Chloride (Saline Flush) 2.5 ml FLUSH ASDIRECTED PRN PRN Reason: Keep Vein Open Sodium Chloride (Normal Saline) 10 ml IV ASDIRECTED PRN PRN Reason: IV Use Sodium Chloride (Saline Flush) 10 ml FLUSH ASDIRECTED PRN PRN Reason: Keep Vein Open Sodium Chloride (Saline Flush) 2.5 ml FLUSH ASDIRECTED PRN PRN Reason: Keep Vein Open Sodium Chloride (Normal Saline) 10 ml IV ASDIRECTED PRN PRN Reason: IV Use Assessment/Plan Comment:: IUP 34+1 , 3rd trimester bleeding. U/S no abruption or Placenta previa. Amniotic floid index is 15. Plane repeat U/S in am to evaluate Amniotic flid index again. repeat AmniSure. I am starting the Pt on antibiotic, Steroid and mag sulphateas per protocol.
[2020-11-16] MEDS ORDERED: Sodium Chloride 0.9% 1,000 ML IV SCH (23:00)
[2020-11-16] MEDS ORDERED: Oxytocin/0.9 % Sodium Chloride 30 UNIT/500 ML BAG ONE (23:53)
[2020-11-17] MEDS ORDERED: Ibuprofen 400 MG Tab PO PRN (00:19)
[2020-11-17] MEDS ORDERED: Witch Hazel Medicated Pads 40/Jar TOP PRN (00:19)
[2020-11-17] MEDS ORDERED: Bisacodyl 10 MG Supp RECTAL PRN (00:19)
[2020-11-17] MEDS ORDERED: Ibuprofen 800 MG Tab PO PRN (00:19)
[2020-11-17] MEDS ORDERED: Lanolin 100% Cream 7 GM Tube TOP PRN (00:19)
[2020-11-17] MEDS ORDERED: Benzocaine/Menthol 20%-0.5% Spray 78 GM Cannister TOP PRN (00:19)
[2020-11-17] MEDS ORDERED: Acetaminophen 500 MG Tab PO PRN ×2 (00:19)
[2020-11-17] MEDS ORDERED: oxyCODONE 5 MG Tab PO PRN (00:19)
[2020-11-17] MEDS ORDERED: Docusate Sodium 100 MG Cap PO PRN (00:19)
--- NOTE | 2020-11-17 08:08 | OR ---
SURGEON: Dante Leo MD DATE OF PROCEDURE: 11/17/2020 Ms. Carpenter is 30. She is para 1-0-0-1. She is followed in our clinic primarily by me. The patient is 34+1. She is admitted here this afternoon with vaginal bleeding and no contraction, with a questionable rupture of the membrane. The patient had an ultrasound, which shows no evidence of abruption and no evidence of previa. The patient was admitted. She was started on antibiotic. She received 1 dose of steroid, and she was started on magnesium sulfate. At the time of admission, she was dilated to 1 to 2 cm, 50% vertex, and out of the pelvis. The patient started having contraction later on, and she started having more bleeding, and she was checked by the nurse sometime around 11:15 p.m., and she was almost complete vertex with bulging bag of water. I came in and ruptured her membrane. The amniotic fluid was blood tinged, is consistent with a possible abruption. The patient did have copious blood clot passed, and then she was able to accomplish normal spontaneous vaginal delivery of male fetus, cried immediately. The ed educational aide and resuscitating team were present at the time of the delivery. score reported to be 8 and 9. The weight is not available. The placenta delivered spontaneous, complete, and intact. Large blood clot is noted after the delivery of the placenta. This showed there is clinical evidence that the patient may have had abruption. However, we going to send the placenta for pathology for confirmation. heart rate was category 1 through the entire process, and estimated blood loss with the mild blood clot is about 500 to 550 mL. There was no laceration. There was no need for episiotomy, and there was no complication in the delivery process. ELIZABETH / ALEKSANDR /[id number]
--- NOTE | 2020-11-17 09:23 | PCM.PNPP ---
- General Info Date of Service: 11/17/20 Functional Status: Reports: Pain Controlled - Review of Systems General: Reports: No Symptoms HEENT: Reports: No Symptoms Pulmonary: Reports: No Symptoms Cardiovascular: Reports: No Symptoms Gastrointestinal: Reports: No Symptoms Genitourinary: Reports: No Symptoms Musculoskeletal: Reports: No Symptoms Skin: Reports: No Symptoms Neurological: Reports: No Symptoms Psychiatric: Reports: No Symptoms - General Info Date of Service: 11/17/20 - Patient Data Vital Signs - Most Recent: Last Vital Signs Temp 36.6 C 11/17/20 07:55 Pulse 82 11/17/20 07:55 Resp 16 11/17/20 07:55 BP 132/79 11/17/20 07:55 Pulse Ox 95 11/17/20 07:55 Weight - Most Recent: 95.9 kg I&O - Last 24 Hours: Intake & Output 11/16/20 11/17/20 11/17/20 22:59 06:59 14:59 Intake Total 100 Balance 100 Lab Results - Last 24 Hours: Laboratory Results - last 24 hr 11/16/20 11/16/20 11/16/20 Range/Units 16:02 16:58 16:58 WBC 10.63 (4.0-11.0) K/uL RBC 4.42 (4.30-5.90) M/uL Hgb 12.9 (12.0-16.0) g/dL Hct 38.7 (36.0-46.0) % MCV 87.6 (80.0-98.0) fL MCH 29.2 (27.0-32.0) pg MCHC 33.3 (31.0-37.0) g/dL RDW Std Deviation 42.4 (28.0-62.0) fl RDW Coeff of Bernarda 13 (11.0-15.0) % Plt Count 219 (150-400) K/uL MPV 11.60 (7.40-12.00) fL Nucleated RBC % 0.0 /100WBC Nucleated RBCs # 0 K/uL Magnesium (1.8-2.4) mg/dL Membrane Rupture POSITIVE SARS-CoV-2 RNA (SARINA) (NEGATIVE) Blood Type A POSITIVE Antibody Screen NEGATIVE 11/16/20 11/17/20 Range/Units 18:18 00:35 WBC (4.0-11.0) K/uL RBC (4.30-5.90) M/uL Hgb (12.0-16.0) g/dL Hct (36.0-46.0) % MCV (80.0-98.0) fL MCH (27.0-32.0) pg MCHC (31.0-37.0) g/dL RDW Std Deviation (28.0-62.0) fl RDW Coeff of Bernarda (11.0-15.0) % Plt Count (150-400) K/uL MPV (7.40-12.00) fL Nucleated RBC % /100WBC Nucleated RBCs # K/uL Magnesium 3.2 H (1.8-2.4) mg/dL Membrane Rupture SARS-CoV-2 RNA (SARINA) NEGATIVE (NEGATIVE) Blood Type Antibody Screen Med Orders - Current: Current Medications Acetaminophen (Tylenol Extra Strength) 500 mg PO Q4H PRN PRN Reason: Pain Acetaminophen (Tylenol Extra Strength) 1,000 mg PO Q4H PRN PRN Reason: Pain Benzocaine/Menthol (Dermoplast Pain Relief 20%-0.5% [place]) 78 gm TOP ASDIRECTED PRN PRN Reason: Perineal Comfort Measure Betamethasone Acet/Betameth SodPhos (Celestone Soluspan 6 Mg/Ml) 12 mg IM Q24H [facility] Stop: 11/17/20 17:01 Last Admin: 11/16/20 17:29 Dose: 12 mg Documented by: Bisacodyl (Dulcolax) 10 mg RECTAL ONETIME PRN PRN Reason: Constipation Calcium Gluconate (Calcium Gluconate) 1 gm IV ASDIRECTED PRN PRN Reason: respiratory distress Carboprost Tromethamine (Hemabate Ds) 250 mcg IM ASDIRECTED PRN PRN Reason: Post Hemorrhage Docusate Sodium (Colace) 100 mg PO BID PRN PRN Reason: Constipation Emollient Ointment (Lansinoh Hpa) 0 gm TOP ASDIRECTED PRN PRN Reason: Sore Nipples Lactated Ringer's (Ringers, Lactated) 1,000 mls @ 150 mls/hr IV ASDIRECTED [facility] Last Admin: 11/16/20 22:28 Dose: 10 mls/hr Documented by: Tranexamic Acid 1,000 mg/ (Sodium Chloride) 110 mls @ 660 mls/hr IV ONETIME PRN PRN Reason: Bleeding Ampicillin Sodium 1 gm/ Sodium (Chloride) 50 mls @ 100 mls/hr IV Q4H [facility] Last Admin: 11/16/20 21:05 Dose: 100 mls/hr Documented by: Magnesium Sulfate (Magnesium Sulfate In Water 20 Gm/500 Ml) 20 gm in 500 mls @ 50 mls/hr IV ASDIRECTED [facility] Last Infusion: 11/17/20 00:15 Dose: 0 gm/hr, 0 mls/hr Documented by: Sodium Chloride (Normal Saline) 1,000 mls @ 10 mls/hr IV ASDIRECTED [facility] Last Admin: 11/16/20 23:04 Dose: 10 mls/hr Documented by: Ibuprofen (Motrin) 400 mg PO Q4H PRN PRN Reason: Pain Ibuprofen (Motrin) 800 mg PO Q6H PRN PRN Reason: Pain Methylergonovine Maleate (Methergine) 0.2 mg IM ASDIRECTED PRN PRN Reason: Post Hemorrhage Misoprostol (Cytotec) 200 mcg PO ONETIME PRN PRN Reason: Post Hemorrhage Oxycodone HCl (Oxycodone) 5 mg PO Q2H PRN PRN Reason: Pain Sodium Chloride (Saline Flush) 10 ml FLUSH ASDIRECTED PRN PRN Reason: Keep Vein Open Sodium Chloride (Saline Flush) 2.5 ml FLUSH ASDIRECTED PRN PRN Reason: Keep Vein Open Sodium Chloride (Normal Saline) 10 ml IV ASDIRECTED PRN PRN Reason: IV Use Sodium Chloride (Saline Flush) 10 ml FLUSH ASDIRECTED PRN PRN Reason: Keep Vein Open Sodium Chloride (Saline Flush) 2.5 ml FLUSH ASDIRECTED PRN PRN Reason: Keep Vein Open Sodium Chloride (Normal Saline) 10 ml IV ASDIRECTED PRN PRN Reason: IV Use Witch Marcie (Tucks) 1 pad TOP ASDIRECTED PRN PRN Reason: comfort care Discontinued Medications Ampicillin Sodium (Ampicillin) Confirm Administered Dose 1 gm .ROUTE .STK-MED ONE Stop: 11/16/20 21:03 Ampicillin Sodium 2 gm/ Sodium (Chloride) 100 mls @ 200 mls/hr IV Q6H [facility] Last Admin: 11/16/20 17:26 Dose: 200 mls/hr Documented by: Magnesium Sulfate 4 gm/ Premix 100 mls @ 300 mls/hr IV BOLUS ONE Stop: 11/16/20 20:15 Last Infusion: 11/16/20 20:20 Dose: 333 mls/hr Documented by: Oxytocin/Sodium Chloride (Oxytocin 30 Unit/500 Ml-Ns) Confirm Administered Dose 30 unit in 500 mls @ as directed .ROUTE .STK-MED ONE Stop: 11/16/20 23:54 - Infant Interaction Support Person: - Recovery Exam Fundal Tone: Firm Fundal Level: 1 Fingerbreadths Below Umbilicus Fundal Placement: Midline Lochia Amount: Scant Lochia Color: Rubra/Red Perineum Description: Intact, Minimal Bruising/Swelling Episiotomy/Laceration: None Bladder Status: Voiding Urinary Elimination: Voided - Exam General: Alert, Oriented HEENT: Pupils Equal Neck: Supple Lungs: Clear to Auscultation, Normal Respiratory Effort Cardiovascular: Regular Rate, Regular Rhythm GI/Abdominal Exam: Normal Bowel Sounds, Soft, Non-Tender, No Organomegaly, No Distention, No Abnormal Bruit, No Mass, Pelvis Stable Extremities: Normal Inspection, Normal Range of Motion, Non-Tender, No Pedal Edema, Normal Capillary Refill Skin: Warm, Dry, Intact Wound/Incisions: Healing Well Neurological: No New Focal Deficit Psy/Mental Status: Alert, Normal Affect, Normal Mood - Problem List Review Problem List Initiated/Reviewed/Updated: Yes - My Orders Last 24 Hours: My Active Orders 11/16/20 15:51 Resuscitation Status Routine 11/16/20 Dinner Regular Diet [DIET] 11/16/20 16:49 Electronic Heart Tones Ext w TOCO [WOMSER] Per Unit Routine 11/16/20 16:52 Bedrest Bathroom Privileges [RC] ASDIRECTED Carboprost Tromethamine [Hemabate DS] 250 mcg IM ASDIRECTED PRN Methylergonovine [Methergine] 0.2 mg IM ASDIRECTED PRN Sodium Chloride 0.9% [Normal Saline] 10 ml IV ASDIRECTED PRN Sodium Chloride 0.9% [Saline Flush] 10 ml FLUSH ASDIRECTED PRN Sodium Chloride 0.9% [Saline Flush] 2.5 ml FLUSH ASDIRECTED PRN Tranexamic Acid [Cyklokapron] 1,000 mg Sodium Chloride 0.9% [Normal Saline] 100 ml IV ONETIME miSOPROStoL [Cytotec] 200 mcg PO ONETIME PRN 11/16/20 16:53 Heart Tones [RC] CONTINUOUS Notify Provider [RC] PRN Vital Signs [RC] PER UNIT ROUTINE Peripheral IV Insertion Adult [OM.PC] Routine 11/16/20 16:58 RPR (SYPHILIS SERO) W/ RFLX [REF] Routine 11/16/20 17:00 Betamet Acet/Betamet Na Phos [Celestone Soluspan 6 MG/ML] 12 mg IM Q24H Lactated Ringers [Ringers, Lactated] 1,000 ml IV ASDIRECTED 11/16/20 19:56 Communication Order [RC] PRN Communication Order [RC] PRN Equipment to Bedside [RC] PRN Intake and Output [RC] QSHIFT Notify Provider [RC] PRN Oxygen Therapy [RC] PRN Calcium Gluconate 1 gm IV ASDIRECTED PRN Sodium Chloride 0.9% [Normal Saline] 10 ml IV ASDIRECTED PRN Sodium Chloride 0.9% [Saline Flush] 10 ml FLUSH ASDIRECTED PRN Sodium Chloride 0.9% [Saline Flush] 2.5 ml FLUSH ASDIRECTED PRN Peripheral IV Insertion Adult [OM.PC] Routine 11/16/20 19:57 Notify Provider Status Change [RC] ASDIRECTED 11/16/20 20:00 Magnesium Sulfate/Water [Magnesium Sulfate in Water 20 GM/500 ML] 20 gm in 500 ml IV ASDIRECTED Deep Tendon Reflexes [WOMSER] Q1H 11/16/20 21:00 Ampicillin 1 gm Sodium Chloride 0.9% [Normal Saline] 50 ml IV Q4H Deep Tendon Reflexes [WOMSER] Q1H 11/16/20 22:00 Deep Tendon Reflexes [WOMSER] Q1H 11/16/20 23:00 Sodium Chloride 0.9% [Normal Saline] 1,000 ml IV ASDIRECTED Deep Tendon Reflexes [WOMSER] Q1H 11/17/20 00:00 Deep Tendon Reflexes [WOMSER] Q1H 11/17/20 00:19 Patient Status [ADT] Routine May Shower [RC] ASDIRECTED Up ad Lilian [RC] ASDIRECTED Vital Signs [RC] PER UNIT ROUTINE Acetaminophen [Tylenol Extra Strength] 1,000 mg PO Q4H PRN Acetaminophen [Tylenol Extra Strength] 500 mg PO Q4H PRN Benzocaine/Menthol [Dermoplast Pain Relief 20%-0.5% [place]] 78 gm TOP ASDIRECTED PRN Docusate Sodium [Colace] 100 mg PO BID PRN Ibuprofen [Motrin] 400 mg PO Q4H PRN Ibuprofen [Motrin] 800 mg PO Q6H PRN Lanolin [Lansinoh HPA] See Dose Instructions TOP ASDIRECTED PRN bisacodyL [Dulcolax] 10 mg RECTAL ONETIME PRN oxyCODONE 5 mg PO Q2H PRN witch Marcie [Tucks] 1 pad TOP ASDIRECTED PRN Assess Lochia [WOMSER] Per Unit Routine Assess Uterine Involution [WOMSER] Per Unit Routine Peripheral IV Discontinue [OM.PC] Routine 11/17/20 01:00 Deep Tendon Reflexes [WOMSER] Pending Sale To [facility] 11/17/20 02:00 Deep Tendon Reflexes [WOMSER] Pending Sale To [facility] 11/17/20 03:00 Deep Tendon Reflexes [WOMSER] Pending Sale To [facility] 11/17/20 04:00 Deep Tendon Reflexes [WOMSER] Pending Sale To [facility] 11/17/20 05:00 Deep Tendon Reflexes [WOMSER] Pending Sale To [facility] 11/17/20 06:00 Deep Tendon Reflexes [WOMSER] Pending Sale To [facility] 11/17/20 07:00 Deep Tendon Reflexes [WOMSER] Pending Sale To [facility] 11/17/20 08:00 Deep Tendon Reflexes [WOMSER] Pending Sale To [facility] 11/17/20 09:00 Deep Tendon Reflexes [WOMSER] Pending Sale To [facility] 11/17/20 10:00 Deep Tendon Reflexes [WOMSER] Pending Sale To [facility] 11/17/20 11:00 Deep Tendon Reflexes [WOMSER] Pending Sale To [facility] 11/17/20 12:00 Deep Tendon Reflexes [WOMSER] Pending Sale To [facility] 11/17/20 13:00 Deep Tendon Reflexes [WOMSER] Pending Sale To [facility] 11/17/20 14:00 Deep Tendon Reflexes [WOMSER] Pending Sale To [facility] 11/17/20 15:00 Deep Tendon Reflexes [WOMSER] Pending Sale To [facility] 11/17/20 16:00 Deep Tendon Reflexes [WOMSER] Pending Sale To [facility] 11/17/20 17:00 Deep Tendon Reflexes [WOMSER] Pending Sale To [facility] 11/17/20 18:00 Deep Tendon Reflexes [WOMSER] Q1H 11/17/20 19:00 Deep Tendon Reflexes [WOMSER] Q1H 11/18/20 05:11 HEMOGLOBIN/HEMATOCRIT,HH [HEME] Timed - Assessment Assessment:: Status post normal spontaneous vaginal delivery doing well the patient will be sent home today because his her baby is transferred - Plan Plan:: IUP 34+1 , 3rd trimester bleeding. U/S no abruption or Placenta previa. Amniotic floid index is 15. Plane repeat U/S in am to evaluate Amniotic flid index again. repeat AmniSure. I am starting the Pt on antibiotic, Steroid and mag sulphateas per protocol.
--- NOTE | 2020-11-17 09:24 | PCM.DCSUM1 ---
Discharge Summary - Hospital Course Diagnosis: Stroke: No - Discharge Data Discharge Date: 11/17/20 Discharge Disposition: Home, Self-Care 01 Condition: Good - Referral to Home Health Primary Care Physician: PCP None - Patient Instructions Diet: Usual Diet as Tolerated - Discharge Plan Home Medications: Home Meds Pnv No.95/Ferrous Fum/Folic AC [ Multivitamin Tablet] 1 tab PO DAILY 06/25/20 [History] Fish Oil/[place]-3 Fatty Acids [Fish Oil 1,000 MG] 1 cap PO DAILY 11/16/20 [History] Pantoprazole Sodium [Protonix] 20 mg PO DAILY 11/16/20 [History] - Discharge Summary/Plan Comment DC Time >30 min.: Yes - General Info Date of Service: 11/17/20 Functional Status: Reports: Pain Controlled - Review of Systems General: Reports: No Symptoms HEENT: Reports: No Symptoms Pulmonary: Reports: No Symptoms Cardiovascular: Reports: No Symptoms Gastrointestinal: Reports: No Symptoms Genitourinary: Reports: No Symptoms Musculoskeletal: Reports: No Symptoms Skin: Reports: No Symptoms Neurological: Reports: No Symptoms Psychiatric: Reports: No Symptoms - Patient Data Vitals - Most Recent: Last Vital Signs Temp 36.6 C 11/17/20 07:55 Pulse 82 11/17/20 07:55 Resp 16 11/17/20 07:55 BP 132/79 11/17/20 07:55 Pulse Ox 95 11/17/20 07:55 Weight - Most Recent: 95.9 kg I&O - Last 24 hours: Intake & Output 11/16/20 11/17/20 11/17/20 22:59 06:59 14:59 Intake Total 100 Balance 100 Lab Results - Last 24 hrs: Laboratory Results - last 24 hr 11/16/20 11/16/20 11/16/20 Range/Units 16:02 16:58 16:58 WBC 10.63 (4.0-11.0) K/uL RBC 4.42 (4.30-5.90) M/uL Hgb 12.9 (12.0-16.0) g/dL Hct 38.7 (36.0-46.0) % MCV 87.6 (80.0-98.0) fL MCH 29.2 (27.0-32.0) pg MCHC 33.3 (31.0-37.0) g/dL RDW Std Deviation 42.4 (28.0-62.0) fl RDW Coeff of Bernarda 13 (11.0-15.0) % Plt Count 219 (150-400) K/uL MPV 11.60 (7.40-12.00) fL Nucleated RBC % 0.0 /100WBC Nucleated RBCs # 0 K/uL Magnesium (1.8-2.4) mg/dL Membrane Rupture POSITIVE SARS-CoV-2 RNA (SARINA) (NEGATIVE) Blood Type A POSITIVE Antibody Screen NEGATIVE 11/16/20 11/17/20 Range/Units 18:18 00:35 WBC (4.0-11.0) K/uL RBC (4.30-5.90) M/uL Hgb (12.0-16.0) g/dL Hct (36.0-46.0) % MCV (80.0-98.0) fL MCH (27.0-32.0) pg MCHC (31.0-37.0) g/dL RDW Std Deviation (28.0-62.0) fl RDW Coeff of Bernarda (11.0-15.0) % Plt Count (150-400) K/uL MPV (7.40-12.00) fL Nucleated RBC % /100WBC Nucleated RBCs # K/uL Magnesium 3.2 H (1.8-2.4) mg/dL Membrane Rupture SARS-CoV-2 RNA (SARINA) NEGATIVE (NEGATIVE) Blood Type Antibody Screen Med Orders - Current: Current Medications Acetaminophen (Tylenol Extra Strength) 500 mg PO Q4H PRN PRN Reason: Pain Acetaminophen (Tylenol Extra Strength) 1,000 mg PO Q4H PRN PRN Reason: Pain Benzocaine/Menthol (Dermoplast Pain Relief 20%-0.5% [place]) 78 gm TOP ASDIRECTED PRN PRN Reason: Perineal Comfort Measure Betamethasone Acet/Betameth SodPhos (Celestone Soluspan 6 Mg/Ml) 12 mg IM Q24H [facility] Stop: 11/17/20 17:01 Last Admin: 11/16/20 17:29 Dose: 12 mg Documented by: Bisacodyl (Dulcolax) 10 mg RECTAL ONETIME PRN PRN Reason: Constipation Calcium Gluconate (Calcium Gluconate) 1 gm IV ASDIRECTED PRN PRN Reason: respiratory distress Carboprost Tromethamine (Hemabate Ds) 250 mcg IM ASDIRECTED PRN PRN Reason: Post Hemorrhage Docusate Sodium (Colace) 100 mg PO BID PRN PRN Reason: Constipation Emollient Ointment (Lansinoh Hpa) 0 gm TOP ASDIRECTED PRN PRN Reason: Sore Nipples Lactated Ringer's (Ringers, Lactated) 1,000 mls @ 150 mls/hr IV ASDIRECTED [facility] Last Admin: 11/16/20 22:28 Dose: 10 mls/hr Documented by: Tranexamic Acid 1,000 mg/ (Sodium Chloride) 110 mls @ 660 mls/hr IV ONETIME PRN PRN Reason: Bleeding Ampicillin Sodium 1 gm/ Sodium (Chloride) 50 mls @ 100 mls/hr IV Q4H [facility] Last Admin: 11/16/20 21:05 Dose: 100 mls/hr Documented by: Magnesium Sulfate (Magnesium Sulfate In Water 20 Gm/500 Ml) 20 gm in 500 mls @ 50 mls/[facility] Last Infusion: 11/17/20 00:15 Dose: 0 gm/hr, 0 mls/hr Documented by: Sodium Chloride (Normal Saline) 1,000 mls @ 10 mls/hr [facility] Last Admin: 11/16/20 23:04 Dose: 10 mls/hr Documented by: Ibuprofen (Motrin) 400 mg PO Q4H PRN PRN Reason: Pain Ibuprofen (Motrin) 800 mg PO Q6H PRN PRN Reason: Pain Methylergonovine Maleate (Methergine) 0.2 mg IM ASDIRECTED PRN PRN Reason: Post Hemorrhage Misoprostol (Cytotec) 200 mcg PO ONETIME PRN PRN Reason: Post Hemorrhage Oxycodone HCl (Oxycodone) 5 mg PO Q2H PRN PRN Reason: Pain Sodium Chloride (Saline Flush) 10 ml FLUSH ASDIRECTED PRN PRN Reason: Keep Vein Open Sodium Chloride (Saline Flush) 2.5 ml FLUSH ASDIRECTED PRN PRN Reason: Keep Vein Open Sodium Chloride (Normal Saline) 10 ml IV ASDIRECTED PRN PRN Reason: IV Use Sodium Chloride (Saline Flush) 10 ml FLUSH ASDIRECTED PRN PRN Reason: Keep Vein Open Sodium Chloride (Saline Flush) 2.5 ml FLUSH ASDIRECTED PRN PRN Reason: Keep Vein Open Sodium Chloride (Normal Saline) 10 ml IV ASDIRECTED PRN PRN Reason: IV Use Witmindi Marcie (Tucks) 1 pad TOP ASDIRECTED PRN PRN Reason: comfort care Discontinued Medications Ampicillin Sodium (Ampicillin) Confirm Administered Dose 1 gm .ROUTE .STK-MED ONE Stop: 11/16/20 21:03 Ampicillin Sodium 2 gm/ Sodium (Chloride) 100 mls @ 200 mls/hr IV Q6H [facility] Last Admin: 11/16/20 17:26 Dose: 200 mls/hr Documented by: Magnesium Sulfate 4 gm/ Premix 100 mls @ 300 mls/hr IV BOLUS ONE Stop: 11/16/20 20:15 Last Infusion: 11/16/20 20:20 Dose: 333 mls/hr Documented by: Oxytocin/Sodium Chloride (Oxytocin 30 Unit/500 Ml-Ns) Confirm Administered Dose 30 unit in 500 mls @ as directed .ROUTE .STK-MED ONE Stop: 11/16/20 23:54 - Exam General: Reports: Alert, Oriented HEENT: Reports: Pupils Equal, Pupils Reactive, EOMI, Mucous Membr. Moist/[place] Neck: Reports: Supple Lungs: Reports: Clear to Auscultation, Normal Respiratory Effort Cardiovascular: Reports: Regular Rate, Regular Rhythm GI/Abdominal Exam: Normal Bowel Sounds, Soft, Non-Tender, No Organomegaly, No Distention, No Abnormal Bruit, No Mass, Pelvis Stable (Female) Exam: Normal External Exam, Normal Speculum Exam, Normal Bimanual Exam Rectal (Female) Exam: Normal Exam, Normal Rectal Tone Back Exam: Reports: Normal Inspection, Full Range of Motion Extremities: Normal Inspection, Normal Range of Motion, Non-Tender, No Pedal Edema, Normal Capillary Refill Skin: Reports: Warm, Dry, Intact Wound/Incisions: Reports: Healing Well Neurological: Reports: No New Focal Deficit Psy/Mental Status: Reports: Alert, Normal Affect, Normal Mood
--- NOTE | 2020-11-17 09:25 | PCM.DCSUM1 ---
Discharge Summary - Hospital Course Diagnosis: Stroke: No - Discharge Data Discharge Date: 11/17/20 Discharge Disposition: Home, Self-Care 01 Condition: Good - Referral to Home Health Primary Care Physician: PCP None - Patient Instructions Diet: Usual Diet as Tolerated Activity: As Tolerated - Discharge Plan Home Medications: Home Meds Pnv No.95/Ferrous Fum/Folic AC [ Multivitamin Tablet] 1 tab PO DAILY 06/25/20 [History] Fish Oil/[place]-3 Fatty Acids [Fish Oil 1,000 MG] 1 cap PO DAILY 11/16/20 [History] Pantoprazole Sodium [Protonix] 20 mg PO DAILY 11/16/20 [History] - Discharge Summary/Plan Comment DC Time >30 min.: Yes - General Info Date of Service: 11/17/20 Functional Status: Reports: Pain Controlled - Review of Systems General: Reports: No Symptoms HEENT: Reports: No Symptoms Pulmonary: Reports: No Symptoms Cardiovascular: Reports: No Symptoms Gastrointestinal: Reports: No Symptoms Genitourinary: Reports: No Symptoms Musculoskeletal: Reports: No Symptoms Skin: Reports: No Symptoms Neurological: Reports: No Symptoms Psychiatric: Reports: No Symptoms - Patient Data Vitals - Most Recent: Last Vital Signs Temp 36.6 C 11/17/20 07:55 Pulse 82 11/17/20 07:55 Resp 16 11/17/20 07:55 BP 132/79 11/17/20 07:55 Pulse Ox 95 11/17/20 07:55 Weight - Most Recent: 95.9 kg I&O - Last 24 hours: Intake & Output 11/16/20 11/17/20 11/17/20 22:59 06:59 14:59 Intake Total 100 Balance 100 Lab Results - Last 24 hrs: Laboratory Results - last 24 hr 11/16/20 11/16/20 11/16/20 Range/Units 16:02 16:58 16:58 WBC 10.63 (4.0-11.0) K/uL RBC 4.42 (4.30-5.90) M/uL Hgb 12.9 (12.0-16.0) g/dL Hct 38.7 (36.0-46.0) % MCV 87.6 (80.0-98.0) fL MCH 29.2 (27.0-32.0) pg MCHC 33.3 (31.0-37.0) g/dL RDW Std Deviation 42.4 (28.0-62.0) fl RDW Coeff of Bernarda 13 (11.0-15.0) % Plt Count 219 (150-400) K/uL MPV 11.60 (7.40-12.00) fL Nucleated RBC % 0.0 /100WBC Nucleated RBCs # 0 K/uL Magnesium (1.8-2.4) mg/dL Membrane Rupture POSITIVE SARS-CoV-2 RNA (SARINA) (NEGATIVE) Blood Type A POSITIVE Antibody Screen NEGATIVE 11/16/20 11/17/20 Range/Units 18:18 00:35 WBC (4.0-11.0) K/uL RBC (4.30-5.90) M/uL Hgb (12.0-16.0) g/dL Hct (36.0-46.0) % MCV (80.0-98.0) fL MCH (27.0-32.0) pg MCHC (31.0-37.0) g/dL RDW Std Deviation (28.0-62.0) fl RDW Coeff of Bernarda (11.0-15.0) % Plt Count (150-400) K/uL MPV (7.40-12.00) fL Nucleated RBC % /100WBC Nucleated RBCs # K/uL Magnesium 3.2 H (1.8-2.4) mg/dL Membrane Rupture SARS-CoV-2 RNA (SARINA) NEGATIVE (NEGATIVE) Blood Type Antibody Screen Med Orders - Current: Current Medications Acetaminophen (Tylenol Extra Strength) 500 mg PO Q4H PRN PRN Reason: Pain Acetaminophen (Tylenol Extra Strength) 1,000 mg PO Q4H PRN PRN Reason: Pain Benzocaine/Menthol (Dermoplast Pain Relief 20%-0.5% [place]) 78 gm TOP ASDIRECTED PRN PRN Reason: Perineal Comfort Measure Betamethasone Acet/Betameth SodPhos (Celestone Soluspan 6 Mg/Ml) 12 mg IM Q24H [facility] Stop: 11/17/20 17:01 Last Admin: 11/16/20 17:29 Dose: 12 mg Documented by: Bisacodyl (Dulcolax) 10 mg RECTAL ONETIME PRN PRN Reason: Constipation Calcium Gluconate (Calcium Gluconate) 1 gm IV ASDIRECTED PRN PRN Reason: respiratory distress Carboprost Tromethamine (Hemabate Ds) 250 mcg IM ASDIRECTED PRN PRN Reason: Post Hemorrhage Docusate Sodium (Colace) 100 mg PO BID PRN PRN Reason: Constipation Emollient Ointment (Lansinoh Hpa) 0 gm TOP ASDIRECTED PRN PRN Reason: Sore Nipples Lactated Ringer's (Ringers, Lactated) 1,000 mls @ 150 mls/hr IV [facility]ED [facility] Last Admin: 11/16/20 22:28 Dose: 10 mls/hr Documented by: Tranexamic Acid 1,000 mg/ (Sodium Chloride) 110 mls @ 660 mls/hr IV ONETIME PRN PRN Reason: Bleeding Ampicillin Sodium 1 gm/ Sodium (Chloride) 50 mls @ 100 mls/hr IV Q4H [facility] Last Admin: 11/16/20 21:05 Dose: 100 mls/hr Documented by: Magnesium Sulfate (Magnesium Sulfate In Water 20 Gm/500 Ml) 20 gm in 500 mls @ [facility] Last Infusion: 11/17/20 00:15 Dose: 0 gm/hr, 0 mls/hr Documented by: Sodium Chloride (Normal Saline) 1,000 mls @ 10 [facility]ls[facility] Last Admin: 11/16/20 23:04 Dose: 10 mls/hr Documented by: Ibuprofen (Motrin) 400 mg PO Q4H PRN PRN Reason: Pain Ibuprofen (Motrin) 800 mg PO Q6H PRN PRN Reason: Pain Methylergonovine Maleate (Methergine) 0.2 mg IM ASDIRECTED PRN PRN Reason: Post Hemorrhage Misoprostol (Cytotec) 200 mcg PO ONETIME PRN PRN Reason: Post Hemorrhage Oxycodone HCl (Oxycodone) 5 mg PO Q2H PRN PRN Reason: Pain Sodium Chloride (Saline Flush) 10 ml FLUSH ASDIRECTED PRN PRN Reason: Keep Vein Open Sodium Chloride (Saline Flush) 2.5 ml FLUSH ASDIRECTED PRN PRN Reason: Keep Vein Open Sodium Chloride (Normal Saline) 10 ml IV ASDIRECTED PRN PRN Reason: IV Use Sodium Chloride (Saline Flush) 10 ml FLUSH ASDIRECTED PRN PRN Reason: Keep Vein Open Sodium Chloride (Saline Flush) 2.5 ml FLUSH ASDIRECTED PRN PRN Reason: Keep Vein Open Sodium Chloride (Normal Saline) 10 ml IV ASDIRECTED PRN PRN Reason: IV Use Witch Marcie (Tucks) 1 pad TOP ASDIRECTED PRN PRN Reason: comfort care Discontinued Medications Ampicillin Sodium (Ampicillin) Confirm Administered Dose 1 gm .ROUTE .STK-MED ONE Stop: 11/16/20 21:03 Ampicillin Sodium 2 gm/ Sodium (Chloride) 100 mls @ 200 mls/hr IV Q6H MAMIE Last Admin: 11/16/20 17:26 Dose: 200 mls/hr Documented by: Magnesium Sulfate 4 gm/ Premix 100 mls @ 300 mls/hr IV BOLUS ONE Stop: 11/16/20 20:15 Last Infusion: 11/16/20 20:20 Dose: 333 mls/hr Documented by: Oxytocin/Sodium Chloride (Oxytocin 30 Unit/500 Ml-Ns) Confirm Administered Dose 30 unit in 500 mls @ as directed .ROUTE .STK-MED ONE Stop: 11/16/20 23:54 - Exam General: Reports: Alert, Oriented HEENT: Reports: Pupils Equal, Pupils Reactive, EOMI, Mucous Membr. Moist/[place] Neck: Reports: Supple Lungs: Reports: Clear to Auscultation, Normal Respiratory Effort Cardiovascular: Reports: Regular Rate, Regular Rhythm GI/Abdominal Exam: Normal Bowel Sounds, Soft, Non-Tender, No Organomegaly, No Distention, No Abnormal Bruit, No Mass, Pelvis Stable (Female) Exam: Normal External Exam, Normal Speculum Exam, Normal Bimanual Exam Rectal (Female) Exam: Normal Exam, Normal Rectal Tone Back Exam: Reports: Normal Inspection, Full Range of Motion Extremities: Normal Inspection, Normal Range of Motion, Non-Tender, No Pedal Edema, Normal Capillary Refill Skin: Reports: Warm, Dry, Intact Wound/Incisions: Reports: Healing Well Neurological: Reports: No New Focal Deficit Psy/Mental Status: Reports: Alert, Normal Affect, Normal Mood
== END 2020-11-17 11:25 | disposition home or self-care (01) | DRG 805 ==
LOC: MW.OBCHECK 14:50 → MW.OB 14:54 → MW.OBCHECK 23:30 → OBSVTOIN 11-17 00:09 → MW.NSY 11-17 02:43 → MW.OB 11-17 02:44
PROVIDERS: ADMIT Obstetrics & Gynecology; ATTEND Obstetrics & Gynecology
PROC: 10E0XZZ Delivery of Products of Conception, External Approach (ICD-10-PCS; principal; 2020-11-17)
DX: O60.14X0 Preterm labor third trimester with preterm delivery third trimester, not applicable or unspecified (principal); O45.93 Premature separation of placenta, unspecified, third trimester; Z37.0 Single live birth; O99.214 Obesity complicating childbirth; E66.9 Obesity, unspecified; Z20.822 Contact with and (suspected) exposure to COVID-19; Z3A.34 34 weeks gestation of pregnancy
CPT/HCPCS: 36415; 59409; 76815-26; 76816; 83735; 84112; 85027; 86592; 86850; 86900; 86901; 88307; A9270-GY; J0290; J0702; J2590; J3475; J7030; J7120; U0002